=== PATIENT | male | born 1940 | race Two or more races ===

== ENCOUNTER 2024-03-21 13:15 | Emergency (ER) | payer OTHER ==
[~2024-03-21] VITALS: Ht 167.6 cm; Wt 95.7 kg
[2024-03-21] MEDS ORDERED: LASIX20 MG PO (13:46)
[2024-03-21] MEDS ORDERED: LIPITOR40 M1 PO (13:47)
[2024-03-21] MEDS ORDERED: COZAAR50 MG PO (13:47)
[2024-03-21] MEDS ORDERED: KETOROLAC TROMETHAMINE 60 MG VIAL IM STA (15:24)
[2024-03-21] MEDS ORDERED: KETOROLAC TROMETHAMINE 60 MG VIAL IM ONE (15:38)
== END 2024-03-21 18:50 | disposition home or self-care (01) ==
LOC: ER 13:15
DX: R53.81 Other malaise (principal); M54.50 Low back pain, unspecified; E11.9 Type 2 diabetes mellitus without complications
CPT/HCPCS: 72100; 96372; 99283; J1885